=== PATIENT | female | born 1960 | race Caucasian/White ===

== ENCOUNTER → 2019-07-03 | Day surgery (SDC) | payer OTHER ==
[~2019-07-03] MED LIST: DAILY VITAMIN1 EAC3 PO; FENTANYL CITRATE/PF 100MCG/2 ML INJ ONE; GLUCAGON FOR INJ 1 MG VIAL ONE; HYOSCYAMINE 0.125 MG TAB ONE; HYZAAR 100-12.1 EACH; LIDOCAINE HCL 2% LOCAL INJ 5 ML SDV VIAL INJ ONE; LOSARTAN PO; LOVASTATIN40 MG; MIDAZOLAM HCL 2 MG/2 ML VIAL ONE; OXYBUTYNIN CHLOR5 MG PO; PHENYLEPHRINE HCL 1% 10 MG/ML VIAL ONE; PROPOFOL IV EMULSION 10 MG/ML 50 ML VIAL ONE; SIMETHICONE 40 MG/0.6 ML BTL ONE
--- OUTSIDE RECORDS SUMMARY | 2019-07-03 06:16 | XMS REPORT ---
Author Author [facility] Address Unknown Phone Unavailable Care Team Providers Care Color Consultant Name Role Phone Unavailable Unavailable Problems This patient has no known problems. Allergies, Adverse Reactions, Alerts This patient has no known allergies or adverse reactions. Medications This patient has no known medications. Results Test Description Test Time Test Comments Text Results Atomic Results Result Comments SCR MAMM BILATERAL CAD DIGITAL W/AUGMENTATION 2018-08-28 10:58:57 - SCR MAMM BILATERAL CAD DIGITAL W/AUGMENTATIONBILATERAL DIGITAL SCREENING MAMMOGRAM WITH CAD WITH AUGMENTATION: 08/28/2018CLINICAL: Asymptomatic. Current mammographic images were evaluated by either a [employer] M-Vu or a [employer] ImageChecker CAD (computer aided detection system). Comparison is made to exams dated 08/16/2014 mammogram, 07/21/2013 mammogram, and 05/22/2012 mammogram - [facility]- . There are scattered fibroglandular tissues in both breasts. There are benign vascular calcifications in the right breast. Bilateral breast implants are stable and intact. No suspicious mass, architectural distortion, malignant type calcification, or lymph node abnormality detected. Breast architecture is stable compared to prior exams.IMPRESSION: BENIGNThere is no mammographic evidence of malignancy. Resume annual screening mammography in one year. Gilberto diop/richi:08/28/2018 10:58:57 Scientologist: Jessa MERRILL, [facility]-FWletter sent: BIRADS 1-2 Normal Mammogram BI-RADS: 2 Benign
[2019-07-03 09:50] VITALS: BP 131/84
--- NOTE | 2019-07-03 17:09 | Operative Report ---
DATE OF PROCEDURE: 07/03/2019 SURGEON: Andrew Jiang MD PROCEDURE: Colonoscopy with polypectomy and biopsies. INDICATIONS FOR COLONOSCOPY: Surveillance colonoscopy, personal history of multiple colon polyps. MEDICATIONS: The patient was done under MAC, please see anesthesiologist's note. PROCEDURE IN DETAIL: With the patient in the left lateral decubitus position, a flexible fiberoptic Olympus colonoscope was inserted into the rectum with ease and advanced all the way to the cecum. Mucosa overlying the cecum appeared to be within normal limits. One polyp was hot snared and one polyp was hot biopsied from the ascending colon. Another polyp was hot biopsied and another one was hot snared from the transverse colon. The descending colon appeared to be within normal limits. Diverticular disease was noted to involve the distal descending and the sigmoid colon. Eight polyps were hot biopsied from the sigmoid colon. The scope was then retroflexed into the distal rectum and some thickened folds were noted in the distal rectum that were biopsied. Internal hemorrhoids were noted, none of which was actively bleeding. The scope was then straightened out, it was subsequently withdrawn, and the patient tolerated the procedure well. IMPRESSION: 1. Ascending colon polyps x2, one hot snared and one hot biopsied. 2. Transverse colon polyps x2, one hot snared and one hot biopsied. 3. Diverticulosis. 4. Sigmoid colon polyps x8, hot biopsied. 5. Thickened folds, distal rectum, biopsied. 6. Internal hemorrhoids, none actively bleeding. PLAN: Follow up histology. Initiate high-fiber, low-fat diet. Initiate high-fiber supplement. The patient might benefit from a followup colonoscopy in 3 years. Andrew Jiang MD [facility] [place] /[id number] cc: Sundeep Jiang MD
== END | disposition home or self-care (01) ==
LOC: OR 05:48
PROVIDERS: ATTEND Internal Medicine Gastroenterology
DX: Z09 Encounter for follow-up examination after completed treatment for conditions other than malignant neoplasm (principal); D12.2 Benign neoplasm of ascending colon; K52.9 Noninfective gastroenteritis and colitis, unspecified; K57.30 Diverticulosis of large intestine without perforation or abscess without bleeding; K62.89 Other specified diseases of anus and rectum; K64.8 Other hemorrhoids; I10 Essential (primary) hypertension; E78.5 Hyperlipidemia, unspecified; F41.9 Anxiety disorder, unspecified; Z01.810 Encounter for preprocedural cardiovascular examination; Z68.27 Body mass index [BMI] 27.0-27.9, adult; Z87.891 Personal history of nicotine dependence; Z80.0 Family history of malignant neoplasm of digestive organs
CPT/HCPCS: 45380; 45384; 45385; 93005; J1610; J2001; J2250; J2370; J2704; J3010; 45378